=== PATIENT | male | born 1950 | race Two or more races ===

== ENCOUNTER 2016-11-28 23:48 | Emergency (ER) | payer MEDICARE, MEDICAID ==
[~2016-11-28] VITALS: Ht 170.2 cm; Wt 109.8 kg
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
--- NOTE | 2016-11-29 00:10 | NUR ---
DR. STOKES AT BEDSIDE FOR EVAL.
--- NOTE | 2016-11-29 00:14 | NUR ---
PT TO CT.
[2016-11-29] MEDS ORDERED: HYDROCODONE/APAP 5/325MG 1 EACH TABLET ONE (00:15)
[2016-11-29] MEDS ORDERED: IBUPROFEN 600 MG TABLET PO ONE ×2 (00:16→00:30)
[2016-11-29] MEDS ORDERED: ONDANSETRON 4 MG TAB.RAPDIS ONE (00:16)
--- NOTE | 2016-11-29 00:26 | NUR ---
PT RETURNED FROM CT.
[2016-11-29] MEDS ORDERED: HYDROCODONE/APAP 5/325MG 1 EACH TABLET PO ONE (00:30)
[2016-11-29] MEDS ORDERED: ONDANSETRON 4 MG TAB.RAPDIS SL ONE (00:30)
--- NOTE | 2016-11-29 00:44 | NUR ---
[employer] AT BEDSIDE FOR POLICE REPORT
--- NOTE | 2016-11-29 02:13 | NUR ---
Called [facility] to follow up Cervical Spine CT, "will have that up as soon as possible"
[2016-11-29 02:53] VITALS: BP 110/58
--- NOTE | 2016-11-29 02:53 | NUR ---
Patient discharged to home in stable condition. Written and verbal after care instructions given. Patient verbalizes understanding of instruction. Pt ambulatory with a steady gait. VSS, NAD noted on DC. Denies complaint on DC.
== END 2016-11-29 02:54 | disposition home or self-care (01) ==
LOC: ER 23:53
DX: S16.1XXA Strain of muscle, fascia and tendon at neck level, initial encounter (principal); I10 Essential (primary) hypertension; E11.9 Type 2 diabetes mellitus without complications; V49.60XA Unspecified car occupant injured in collision with unspecified motor vehicles in traffic accident, initial encounter; Y93.89 Activity, other specified; Y92.413 State road as the place of occurrence of the external cause; Y99.8 Other external cause status
CPT/HCPCS: 72125; 99284; A4606; L0172; Q0162; Z7610